=== PATIENT | female | born 1950 | race Caucasian/White ===

== ENCOUNTER 2019-06-03 08:56 | Emergency (ER) | payer OTHER ==
[2019-06-03 09:02] VITALS: BP 111/64; PULSE 85; TEMP 98.5; BMI 31.8
[2019-06-03] MEDS ORDERED: ALBUTEROL SO4 2.5/IPRATROPIUM 0.5 INH SOL 3 ML VIAL.NEB. NEB ONE ×2 (09:29→09:50)
[2019-06-03] MEDS ORDERED: SODIUM CHLORIDE FOR INHALATION 3 ML VIAL.NEB IH ONE (09:30)
--- NOTE | 2019-06-03 09:56 | PDOC ---
History of Present Illness - General Chief Complaint: Asthma Stated Complaint: ASTHMA Time Seen by Provider: 06/03/19 09:22 History Source: Patient Exam Limitations: Clinical Condition - History of Present Illness Initial Comments: 06/03/19 09:51 Patient with history of asthma, hypertension and hypothyroidism presented with complaint of 2-day history of persisting cough, wheezing, nasal congestion and tactile fever and chills. Patient has not taken anything for symptoms except rescue inhaler for wheezing. Denies recent travel or sick contact. Is this a multiple visit Asthma Patient?: No Timing/Duration: other (2 days) Past History - Past Medical History Allergies/Adverse Reactions: Allergies Allergy/AdvReac Type Severity Reaction Status Date / Time No Known Allergies Allergy Verified 06/03/19 08:58 Home Medications: Ambulatory Orders Albuterol Sulfate Inhaler - [Ventolin Hfa Inhaler -] 2 inh PO Q8H PRN #1 inh 11/13 Benzonatate [Tessalon Pearls -] 100 mg PO Q8H PRN #21 capsule 06/03/19 Ipratropium Hennessey 2 spray NS BID PRN #1 spray 06/03/19 Montelukast Na [Singulair -] 10 mg PO DAILY #7 tablet 06/03/19 Asthma: Yes COPD: No HTN: Yes Hypercholesterolemia: Yes Thyroid Disease: Yes - Psycho Social/Smoking Cessation Hx Smoking History: Never smoked Hx Alcohol Use: No Drug/Substance Use Hx: No Review of Systems - Review of Systems Able to Perform ROS?: Yes Is the patient limited Azeri proficient: No Constitutional: Yes: See HPI, Chills, Fever (tactile fever), Malaise HEENTM: Yes: Symptoms Reported, See HPI, Nose Congestion. No: Eye Pain, Blurred Vision, Tearing, Recent change in vision, Double Vision, Cataracts, Ear Pain, Ocular Prothesis, Ear Discharge, Nose Pain, Tinnitus, Nose Bleeding, Hearing Loss, Throat Pain, Throat Swelling, Mouth Pain, Dental Problems, Difficulty Swallowing, Mouth Swelling, Other Respiratory: Yes: Symptoms reported, See HPI, Cough, Wheezing, Productive cough. No: Orthopnea, Shortness of Breath, SOB with Exertion, SOB at Rest, Stridor, Hemoptysis, Other Cardiac (ROS): No: Symptoms Reported, See HPI, Chest Pain, Edema, Irregular Heart Rate, Lightheadedness, Palpitations, Syncope, Chest Tightness, Other ABD/GI: No: Symptoms Reported, See HPI, Constipated, Diarrhea, Nausea, Vomiting , Abdominal cramping : No: Symptoms Reported Musculoskeletal: No: Symptoms Reported All Other Systems: Reviewed and Negative *Physical Exam - Vital Signs Last Vital Signs Temp Pulse Resp BP Pulse Ox 98.5 F 85 16 111/64 96 06/03/19 08:58 06/03/19 08:58 06/03/19 08:58 06/03/19 08:58 06/03/19 08:58 - Physical Exam 06/03/19 09:55 GENERAL: Well developed, well nourished. Awake and alert. No acute distress. HEENT: Normocephalic, atraumatic. PERRLA, EOMI. No conjunctival pallor. Sclera are non-icteric. Moist mucous membranes. Oropharynx is clear. NECK: Supple. Full ROM. CARDIOVASCULAR: Regular rate and rhythm. No murmurs, rubs, or gallops. Distal pulses are 2+ and symmetric. PULMONARY: No evidence of respiratory distress. Diffuse expiratory wheeze to auscultation bilaterally. No rales or rhonchi. ABDOMINAL: Soft. Non-tender. Non-distended. No rebound or guarding. No organomegaly. Normoactive bowel sounds. MUSCULOSKELETAL Normal range of motion at all joints. SKIN: Warm and dry. Normal capillary refill. No rashes. No jaundice. NEUROLOGICAL: Alert, awake, appropriate. Gait is normal without ataxia. PSYCHIATRIC: Cooperative. Good eye contact. Appropriate mood General Appearance: Yes: Nourished, Appropriately Dressed. No: Apparent Distress ED Treatment Course - RADIOLOGY Radiology Studies Ordered: Category Date Time Status CHEST PA & LAT [RAD] Stat Radiology 06/03/19 09:29 Ordered Medical Decision Making - Medical Decision Making 06/03/19 09:53 Patient with history of asthma, hypertension and hypothyroidism presented with complaint of 2-day history of persisting cough, wheezing, nasal congestion and tactile fever and chills. Patient has not taken anything for symptoms except rescue inhaler for wheezing. Denies recent travel or sick contact. Exam significant for diffuse expiratory wheeze with no acute respiratory distress. Patient afebrile. Patient satting at 96% on room air. Symptoms likely viral URI with asthma exacerbation versus less likely pneumonia. DuoNeb with Atrovent and albuterol ordered for wheezing. Chest x-ray ordered to rule out pneumonia 06/03/19 10:34 Chest x-ray shows no acute infiltrate. Patient with improvement in wheezing post nebulizer treatment. Patient symptoms likely viral URI and stable for discharge on Tessalon Perles as needed for cough, antihistamine and ventolin inhaler for congestion with PCP follow-up Discharge - Discharge Information Problems reviewed: Yes Clinical Impression/Diagnosis: URI with cough and congestion Condition: Stable Disposition: HOME - Admission No - Additional Discharge Information Prescriptions: Albuterol Sulfate Inhaler - [Ventolin Hfa Inhaler -] 2 inh PO Q8H PRN #1 inh PRN Reason: wheezing Benzonatate [Tessalon Pearls -] 100 mg PO Q8H PRN #21 capsule PRN Reason: Cough Ipratropium Hennessey 2 spray NS BID PRN #1 spray PRN Reason: nasal congestion Montelukast Na [Singulair -] 10 mg PO DAILY #7 tablet - Follow up/Referral - Patient Discharge Instructions Patient Printed Discharge Instructions: DI for Viral Upper Respiratory Infection -- Adult Additional Instructions: Chest x-ray shows no pneumonia. Symptoms likely upper respiratory infection. Take prescribed medication as cough and congestion. Increase fluid intake. Follow-up with primary care - Post Discharge Activity
== END 2019-06-03 11:08 | disposition home or self-care (01) ==
LOC: JERFT 08:56
PROC: 3E0F7GC Introduction of Other Therapeutic Substance into Respiratory Tract, Via Natural or Artificial Opening (ICD-10-PCS; principal; 2019-06-03)
DX: J06.9 Acute upper respiratory infection, unspecified (principal); R05 Cough; R09.81 Nasal congestion; I10 Essential (primary) hypertension; E03.9 Hypothyroidism, unspecified; J45.909 Unspecified asthma, uncomplicated
CPT/HCPCS: 71046-TC-FY; 99281-25

== ENCOUNTER 2022-12-24 13:47 | Inpatient (IN) | payer OTHER ==
[2022-12-24 15:43] LABS: BASO % 1.1 % (0-2.0); EOS % 2.6 % (0-4.5); HEMATOCRIT 36.9 % (32.4-45.2); HEMOGLOBIN 12.5 GM/dL (10.7-15.3); LYMPH % 18.8 % (8-40); MCH 29.9 pg (25.7-33.7); MCHC 33.7 g/dl (32.0-36.0); MEAN CELL VOLUME 88.6 fl (80-96); MEAN PLT VOLUME 7.2 fl (7.5-11.1); MONO % 11.2 % (3.8-10.2); NEUT % 66.3 % (42.8-82.8); PLATELET COUNT 272 10^3/uL (134-434); RBC 4.17 M/mm3 (3.60-5.2); RDW 14.9 % (11.6-15.6)
[2022-12-24 16:01] LABS: ALBUMIN 2.9 g/dl (3.4-5.0); CALCIUM 8.8 mg/dL (8.5-10.1)
[2022-12-24 16:02] LABS: BLOOD UREA NITROGEN 13.5 mg/dL (7-18)
[2022-12-24 16:04] LABS: CREATININE 0.8 mg/dL (0.55-1.3)
[2022-12-24 16:06] LABS: BILIRUBIN,TOTAL 0.4 mg/dL (0.2-1); TOT PROT 7.3 g/dl (6.4-8.2)
[2022-12-24] MEDS ORDERED: ENOXAPARIN NA (PORCINE) 80 MG/0.8 ML DISP.SYRIN SQ ONE (16:27)
[2022-12-24] MEDS ORDERED: ACETAMINOPHEN 1000 MG/100 ML BAG IVPB ONE (16:46)
[2022-12-24] MEDS ORDERED: morphine CARPU-JECT 4 MG/1 ML DISP.SYRIN IVPUSH ONE (17:16)
[2022-12-24] MEDS ORDERED: ACETAMINOPHEN INJECTION 100 ML IVPB ONE (17:19)
[2022-12-24] MEDS ORDERED: morphine SULFATE 4 MG/ML VIAL ONE (17:19)
[2022-12-24] MEDS ORDERED: ENOXAPARIN NA (PORCINE) 100 MG/1 ML DISP.SYRIN SQ ONE (17:19)
[2022-12-24 17:47] LABS: INR 1.15 (0.83-1.09); PROTHROMBIN TIME (PATIENT) 13.3 SEC (9.7-13.0)
[2022-12-24 17:50] LABS: ACTIVATED PTT 25.8 SECONDS (25.2-36.5)
[2022-12-24] MEDS ORDERED: morphine SULFATE 4 MG/ML VIAL IVPUSH PRN (22:11)
[2022-12-24] MEDS ORDERED: ALBUTEROL SO4 HFA INHALER IH PRN (22:27)
[2022-12-24] MEDS: ENOXAPARIN NA (PORCINE) 100 MG/1 ML DISP.SYRIN SQ SCH (22:48)
[2022-12-24] MEDS: ACETAMINOPHEN 325 MG TABLET (FP) PO PRN (22:49)
[2022-12-25 02:16] VITALS: BMI 35.0
[2022-12-25 02:23] LABS: EPI CELLS 17 /uL (0-25.1); HYALINE CASTS 0 /uL (0-3.1); PH,URINE 5.5 (5.0-8.0); URINE APPEARANCE CLEAR; URINE BACTERIA 31 /uL (0-1359); URINE BILIRUBIN NEGATIVE (NEGATIVE); URINE COLOR YELLOW; URINE GLUCOSE (UA) NEGATIVE (NEGATIVE); URINE KETONE NEGATIVE (NEGATIVE); URINE LEUK ESTERASE TRACE (NEGATIVE); URINE NITRITE NEGATIVE (NEGATIVE); URINE PROTEIN NEGATIVE (NEGATIVE); URINE RBC 12 /uL (0-23.9); URINE UROBILINOGEN 0.2 mg/dL (0.2-1.0); URINE WBC 44 /uL (0-25.8)
[2022-12-25] MEDS ORDERED: MELATONIN 5 MG TABLETS PO PRN (04:01)
[2022-12-25] MEDS ORDERED: LEVOTHYROXINE NA 75 MCG TABLET (FP) PO SCH (07:00)
[2022-12-25 07:37] VITALS: RESP 20
[2022-12-25 08:16] LABS: BASO % 1.1 % (0-2.0); EOS % 4.3 % (0-4.5); HEMATOCRIT 36.2 % (32.4-45.2); HEMOGLOBIN 12.4 GM/dL (10.7-15.3); LYMPH % 26.9 % (8-40); MCH 30.6 pg (25.7-33.7); MCHC 34.3 g/dl (32.0-36.0); MEAN CELL VOLUME 89.3 fl (80-96); MEAN PLT VOLUME 7.6 fl (7.5-11.1); NEUT % 56.7 % (42.8-82.8); PLATELET COUNT 274 10^3/uL (134-434); RBC 4.05 M/mm3 (3.60-5.2); RDW 14.8 % (11.6-15.6); WHITE BLOOD COUNT 8.7 K/mm3 (4.0-10.0)
[2022-12-25 08:24] LABS: INR 1.25 (0.83-1.09); PROTHROMBIN TIME (PATIENT) 14.5 SEC (9.7-13.0)
[2022-12-25 08:30] LABS: POTASSIUM 4.2 mmol/L (3.5-5.1)
[2022-12-25 08:33] LABS: CALCIUM 8.7 mg/dL (8.5-10.1)
[2022-12-25 08:34] LABS: ALBUMIN 2.7 g/dl (3.4-5.0); BLOOD UREA NITROGEN 11.4 mg/dL (7-18); MAGNESIUM 2.1 mg/dL (1.8-2.4)
[2022-12-25 08:37] LABS: CREATININE 0.7 mg/dL (0.55-1.3)
[2022-12-25 08:38] LABS: BILIRUBIN,TOTAL 0.4 mg/dL (0.2-1); TOT PROT 6.8 g/dl (6.4-8.2)
[2022-12-25 09:06] LABS: PHOSPHOROUS 3.9 mg/dL (2.5-4.9)
[2022-12-25 09:49] VITALS: BP 115/64; PULSE 73; TEMP 97.6
[2022-12-25] MEDS: ENOXAPARIN NA (PORCINE) 100 MG/1 ML DISP.SYRIN SQ SCH (10:00)
[2022-12-25] MEDS ORDERED: ENALAPRIL MALEATE 10 MG TABLET PO SCH (10:00)
[2022-12-25] MEDS: ACETAMINOPHEN 325 MG TABLET (FP) PO PRN (12:07)
[2022-12-25] MEDS ORDERED: ATORVASTATIN CA 10 MG TABLET (FP) PO SCH (22:00)
== END 2022-12-25 14:35 | disposition home or self-care (01) | DRG 300 ==
LOC: JER 13:47 → JERBED 18:34 → J8W 21:59
PROVIDERS: ADMIT Internal Medicine; ATTEND Nurse Practitioner Family
DX: I82.412 Acute embolism and thrombosis of left femoral vein (principal); D68.59 Other primary thrombophilia; I82.812 Embolism and thrombosis of superficial veins of left lower extremity; E03.9 Hypothyroidism, unspecified; J45.909 Unspecified asthma, uncomplicated; I10 Essential (primary) hypertension; E78.5 Hyperlipidemia, unspecified; E66.9 Obesity, unspecified; Z68.35 Body mass index [BMI] 35.0-35.9, adult
CPT/HCPCS: 36415; 72170-TC-FY; 73502-TC-LT-FY; 80053; 81003; 83735; 84100; 85025; 85379; 85610; 85730; 86850; 86900; 86901; 93005; 93010; 93970-TC; 99285-25